=== PATIENT | male | born 1965 | race Caucasian/White ===

== ENCOUNTER → 2016-11-03 | Day surgery (SDC) | payer MEDICARE ==
[~2016-11-03] MED LIST: AMBIEN10 MG PO; HYDROCODON-ACE1 EAC1; HYDROCODON-ACE1 EAC5 PO; LYRICA50 MG; NAPROSYN500 MG; NEURONTIN800 MG PO; TIZANIDINE HCL4 M1 PO; ZANAFLEX4 M1; ZOLOFT50 MG PO
--- NOTE | ~2016-11-03 | OR ---
Unit #: [id number] #: [id number] Patient: NILSA WARE [id number] [address] [place], [place] [address] [id number] O MR#: [id number] NAME: NILSA WARE ROOM: Date of Procedure: 11/03/2016 Admission Date: 11/03/2016 Surgeon: Shaggy Al M.D. : 1965 Attending Physician: Shaggy Al M.D. Primary Care Physician: Chuck Heller M.D. OPERATIVE REPORT PROCEDURE PERFORMED Colonoscopy with snare polypectomy multiple. INDICATIONS FOR PROCEDURE A 50-year-old gentleman, average risk for colorectal cancer, here for screening colonoscopy. MEDICATIONS Monitored anesthesia. POSTOPERATIVE FINDINGS 1. Polyp in ascending colon. Polyp x3 in transverse colon, snared and sent for histopathology. 2. Polyp, sigmoid colon, 6 to 8 mm, snared and sent for histopathology. 3. Good prep. 4. Small hemorrhoids. PLAN Follow up on the pathology report. Repeat colonoscopy in 3 years. DESCRIPTION OF PROCEDURE The patient was explained of the procedure, risks, and benefits along with the risks and benefits of anesthesia. He was brought to the endoscopy room. Propofol anesthesia was given. Rectal exam was done, which was normal. Colonoscope was lubricated, passed up the rectum, advanced under direct vision all the way to the cecum. Cecum was identified by ileocecal valve and appendiceal orifice. I then started to pull the scope out carefully looking. Findings have been described above. In retroflexed in the rectum, small hemorrhoids were seen. The scope was gently pulled out. He tolerated it well. Dictated by... Lucina Wlil/jory TD: 11/03/2016 17:48 JOB #: [id number] CC: Mirza Husain M.D. Unit #: [id number] #: [id number] Patient: NILSA WARE OPERATIVE REPORT Page 1 of 1 X Shaggy Al MD PROCEDURE OPERATIVE NOTE
== END | disposition home or self-care (01) ==
LOC: COPS 13:08
PROVIDERS: Internal Medicine
PROC: 0DBK8ZX Excision of Ascending Colon, Via Natural or Artificial Opening Endoscopic, Diagnostic (ICD-10-PCS; principal; 2016-11-03 14:00)
PROC: 0DBN8ZX Excision of Sigmoid Colon, Via Natural or Artificial Opening Endoscopic, Diagnostic (ICD-10-PCS; 2016-11-03 14:00)
PROC: 0DBL8ZX Excision of Transverse Colon, Via Natural or Artificial Opening Endoscopic, Diagnostic (ICD-10-PCS; 2016-11-03 14:00)
DX: Z12.11 Encounter for screening for malignant neoplasm of colon (principal); D12.2 Benign neoplasm of ascending colon; D12.3 Benign neoplasm of transverse colon; D12.4 Benign neoplasm of descending colon; K64.9 Unspecified hemorrhoids; Z79.899 Other long term (current) drug therapy; Z79.891 Long term (current) use of opiate analgesic; Z87.442 Personal history of urinary calculi; Z98.890 Other specified postprocedural states
CPT/HCPCS: 88305